=== PATIENT | female | born 1955 | race African-American/Black ===

== ENCOUNTER 2016-08-08 09:28 | Emergency (ER) | payer MEDICARE ==
[2016-08-08 09:43] VITALS: BP 148/101
--- OUTSIDE RECORDS SUMMARY | 2016-08-08 09:49 | XMS REPORT | Summary of Care ---
:1955 Author Organization [facility] Address [address] [place] [address] Care Team Providers Name Role Phone Cathy Lindquisthy Carlyle Primary Care Physician Encounter Date(s): 06/29/16 - 06/29/16 [facility] Shalini Savage, [address] [place], [place] [address] Discharge Disposition: 01 Discharged to Home or Self Care Attending Physician: Blanco Mulligan MD Referring Physician: Blanco Mulligan MD Vital Signs Most recent to oldest [Reference Range]: 1 Blood Pressure [90-130/60-90 mmHg] 130/80mmHg (06/29/16 9:39 AM) Mean Arterial Pressure, Cuff 97 mmHg (06/29/16 9:39 AM) Most recent to oldest [Reference Range]: 1 Height/Length Measured 158 cm (06/29/16 9:39 AM) Problem List Condition Effective Dates Status Health Status Informant Anxiety(Confirmed) Active patient Depression(Confirmed) Active patient Hypercholesteremia(Confirmed) Active patient Hypertension(Confirmed) Active patient Hypertension(Confirmed) Active patient Allergies, Adverse Reactions, Alerts No Known Medication Allergies Medications allopurinol 100 mg oral tablet 2 tab(s), Oral, Daily, # 180 tab(s), 0 Refill(s), Start Date: 06/29/16 13:05:00 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 Start Date: 06/29/16 Status: Orderedallopurinol 100 mg oral tablet 1 tab(s), Oral, Daily, # 90 tab(s), 1 Refill(s), Start Date: 06/29/16 9:44:34 EMISSIONS INSPECTOR, Pharmacy: [facility] Start Date: 06/29/16 Stop Date: 06/29/16 Status: Completedallopurinol 100 mg oral tablet 1 tab(s), Oral, Daily, # 30 tab(s), 0 Refill(s), Start Date: 06/29/16 9:41:46 EMISSIONS INSPECTOR, Pharmacy: [place], [place] Start Date: 06/29/16 Stop Date: 06/29/16 Status: Completedallopurinol 100 mg oral tablet 1 tab(s), Oral, Daily, # 30 tab(s), 0 Refill(s), Start Date: 04/29/16 14:50:00 EMISSIONS INSPECTOR, Pharmacy: [place], [place] Start Date: 04/29/16 Stop Date: 06/29/16 Status: Completedallopurinol 300 mg oral tablet 1 tab(s), Oral, Daily, Increased dose, # 30 tab(s), 0 Refill(s), Start Date: 9:46:00 EMISSIONS INSPECTOR, Pharmacy: [facility], [place] Special Instructions: Increased dose Start Date: 06/29/16 Stop Date: 06/29/16 Status: Completedallopurinol 300 mg oral tablet 1 tab(s), Oral, Daily, # 90 tab(s), 1 Refill(s), Start Date: 06/29/16 9:47:00 EMISSIONS INSPECTOR, Pharmacy: [facility] Start Date: 06/29/16 Stop Date: 06/29/16 Status: CompletedBystolic 10 mg oral tablet 2 tab(s), Oral, Daily, # 60 tab(s), 0 Refill(s), Start Date: 10/18/14 13:24:00 CDT Start Date: 10/18/14 Status: Orderedcitalopram 20 mg oral tablet 1 tab(s), Oral, Daily, # 30 tab(s), 0 Refill(s), Start Date: 10/18/14 13:23:00 CDT Start Date: 10/18/14 Status: Orderedcolchicine 0.6 mg oral capsule TAKE ONE CAPSULE BY MOUTH TWICE DAILY Special Instructions: TAKE ONE CAPSULE BY MOUTH TWICE DAILY Start Date: 04/29/16 Stop Date: 05/27/16 Status: Discontinuedcolchicine-probenecid 0.5 mg-500 mg oral tablet 1 tab(s), Oral, Daily, # 90 tab(s), 1 Refill(s), Start Date: 06/29/16 9:44:33 EMISSIONS INSPECTOR, Pharmacy: [facility] Start Date: 06/29/16 Status: Orderedcolchicine-probenecid 0.5 mg-500 mg oral tablet 1 tab(s), Oral, Daily, # 30 tab(s), 0 Refill(s), Start Date: 06/29/16 9:41:47 EMISSIONS INSPECTOR, Pharmacy: [place], [place] Start Date: 06/29/16 Status: Orderedcolchicine-probenecid 0.5 mg-500 mg oral tablet 1 tab(s), Oral, Daily, # 30 tab(s), 0 Refill(s), Start Date: 04/29/16 14:50:00 EMISSIONS INSPECTOR, Pharmacy: [place], [place] Start Date: 04/29/16 Stop Date: 06/29/16 Status: CompletedEpiPen 2-Oscar 0.3 mg injectable kit INJECT ONE SYRINGE intramuscularly ONCE NEEDED Special Instructions: INJECT ONE SYRINGE intramuscularly ONCE NEEDED Start Date: 04/29/16 Status: Orderedhydrochlorothiazide 25 mg oral tablet 1 tab(s), Oral, Daily, # 30 tab(s), 0 Refill(s), Start Date: 10/18/14 13:24:00 CDT Start Date: 10/18/14 Stop Date: 05/27/16 Status: Completedlevothyroxine 50 mcg (0.05 mg) oral tablet TAKE ONE TABLET BY MOUTH DAILY Special Instructions: TAKE ONE TABLET BY MOUTH DAILY Start Date: 04/29/16 Status: Orderedlisinopril-hydroCHLOROthiazide 20mg-25mg oral tablet TAKE ONE TABLET BY MOUTH DAILY Special Instructions: TAKE ONE TABLET BY MOUTH DAILY Start Date: 04/29/16 Status: Orderedlovastatin 20 mg oral tablet, extended release 1 tab(s), Oral, HS, 0 Refill(s), Start Date: 10/18/14 13:47:00 CDT Start Date: 10/18/14 Status: OrderedpredniSONE 10 mg oral tablet 3 tab(s), Oral, Daily, # 21 tab(s), 0 Refill(s), Start Date: 05/27/16 10:56:00 EMISSIONS INSPECTOR, Pharmacy: [place], [place] Start Date: 05/27/16 Stop Date: 06/29/16 Status: Completedsulindac 200 mg oral tablet TAKE ONE TABLET BY MOUTH TWICE DAILY WITH FOOD Special Instructions: TAKE ONE TABLET BY MOUTH TWICE DAILY WITH FOOD Start Date: 04/29/16 Status: OrderedtraMADol 50 mg oral tablet 1 tab(s), Oral, BID, # 20 tab(s), 0 Refill(s), Start Date: 05/27/16 10:57:00 EMISSIONS INSPECTOR , called to pharmacy (Rx) Start Date: 05/27/16 Stop Date: 06/29/16 Status: CompletedVoltaren 1% topical gel APPLY TWICE A DAY Special Instructions: APPLY TWICE A DAY Start Date: 04/29/16 Stop Date: 05/27/16 Status: Discontinued Results No data available for this section Immunizations No data available for this section Procedures Procedure Date Related Diagnosis Body Site Parotidectomy (Right)1 10/22/14 Breast reduction, bilateral Bunionectomy Hysterectomy Rotator cuff repair Tubal ligation 1auto-populated from documented surgical case Social History No data available for this section Assessment and Plan No data available for this section
--- OUTSIDE RECORDS SUMMARY | 2016-08-08 09:49 | XMS REPORT | Summary of Care ---
:1955 Author Organization [facility] Address [address] [place] [id number] Care Team Providers Name Role Phone LexaChanel Carlyle Primary Care Physician Encounter Date(s): 06/29/16 - 06/29/[address] [address] Discharge Disposition: 01 Discharged to Home or Self Care Attending Physician: Blanco Mulligan MD Admitting Physician: Blanco Mulligan MD Vital Signs No data available for this section Problem List Condition Effective Dates Status Health Status Informant Anxiety(Confirmed) Active patient Depression(Confirmed) Active patient Hypercholesteremia(Confirmed) Active patient Hypertension(Confirmed) Active patient Hypertension(Confirmed) Active patient Allergies, Adverse Reactions, Alerts No Known Medication Allergies Medications allopurinol 100 mg oral tablet 2 tab(s), Oral, Daily, # 180 tab(s), 0 Refill(s), Start Date: 06/29/16 13:05:00 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, Pharmacy: [place], [place] Start Date: 06/29/16 Stop Date: 06/29/16 Status: Completedallopurinol 100 mg oral tablet 1 tab(s), Oral, Daily, # 30 tab(s), 0 Refill(s), Start Date: 04/29/16 14:50:00 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, Pharmacy: [place], [place] Start Date: 04/29/16 Stop Date: 06/29/16 Status: Completedallopurinol 300 mg oral tablet 1 tab(s), Oral, Daily, Increased dose, # 30 tab(s), 0 Refill(s), Start Date: 9:46:00 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, Pharmacy: [place], [place] Special Instructions: Increased dose Start Date: 06/29/16 Stop Date: 06/29/16 Status: Completedallopurinol 300 mg oral tablet 1 tab(s), Oral, Daily, # 90 tab(s), 1 Refill(s), Start Date: 06/29/16 9:47:00 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, Pharmacy: [facility] Start Date: 06/29/16 Stop Date: 06/29/16 [...] tab(s), 1 Refill(s), Start Date: 06/29/16 9:44:33 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, Pharmacy: [facility] Start Date: 06/29/16 Status: Orderedcolchicine-probenecid 0.5 mg-500 mg oral tablet 1 tab(s), Oral, Daily, # 30 tab(s), 0 Refill(s), Start Date: 06/29/16 9:41:47 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, Pharmacy: [place], [place] Start Date: 06/29/16 Status: Orderedcolchicine-probenecid 0.5 mg-500 mg oral tablet 1 tab(s), Oral, Daily, # 30 tab(s), 0 Refill(s), Start Date: 04/29/16 14:50:00 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, Pharmacy: [place], [place] Start Date: 04/29/16 Stop Date: 06/29/16 [...] tab(s), 0 Refill(s), Start Date: 05/27/16 10:56:00 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, Pharmacy: [place], [place] Start Date: 05/27/16 Stop Date: 06/29/16 Status: Completedsulindac 200 mg oral tablet TAKE ONE TABLET BY MOUTH TWICE DAILY WITH FOOD Special Instructions: TAKE ONE TABLET BY MOUTH TWICE DAILY WITH FOOD Start Date: 04/29/16 Status: OrderedtraMADol 50 mg oral tablet 1 tab(s), Oral, BID, # 20 tab(s), 0 Refill(s), Start Date: 05/27/16 10:57:00 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 , called to pharmacy (Rx) Start Date: 05/27/16 Stop Date: 06/29/16 Status: CompletedVoltaren 1% topical gel APPLY TWICE A DAY Special Instructions: APPLY TWICE A DAY Start Date: 04/29/16 Stop Date: 05/27/16 Status: Discontinued Results Patient Viewable Results Most recent to oldest [Reference Range]: 1 Creatinine Lvl [0.50-1.20 mg/dL] 1.11 mg/dL (06/29/16 10:10 AM) eGFR AA [>=60] >60 (06/29/16 10:10 AM) eGFR NESTOR [>=60] 50 *LOW* (06/29/16 10:10 AM) AST [0-39 unit/L] 21 unit/L (06/29/16 10:10 AM) ALT [0-40 unit/L] 22 unit/L (06/29/16 10:10 AM) Uric Acid [2.6-6.0 mg/dL] 5.5 mg/dL (06/29/16 10:10 AM) Estimated Creatinine Clearance 53.62 mL/min (06/29/16 12:05 PM) Immunizations No data available for this section Procedures Procedure Date Related Diagnosis Body Site Parotidectomy (Right)1 10/22/14 Breast reduction, bilateral Bunionectomy Hysterectomy Rotator cuff repair Tubal ligation 1auto-populated from documented surgical case Social History No data available for this section Assessment and Plan No data available for this section
--- OUTSIDE RECORDS SUMMARY | 2016-08-08 09:49 | XMS REPORT | Continuity of Care Document ---
:1955 Author Organization [facility] ([facility]) Address [address] [place] [address] Phone [phone] Care Team Providers Name Role Phone Chanel Lindquist Primary Care Provider [phone] Source Comments This disclosure is being made pursuant to the Care Everywhere program, applicable federal and state laws, and may not contain all informaitonavailable regarding this patient.[facility] ([facility]) Active Allergies and Adverse Reactions No Active Allergies Current Medications Not on file Active Problems Problem Noted Date Polymyalgia rheumatica 05/14/2005 Social History Tobacco Use Types Packs/Day Years Used Date Never Assessed Last Filed Vital Signs Vital Sign Reading Time Taken Blood Pressure 136/85 11/18/2005 1:32 PM CDT Pulse 84 11/18/2005 1:32 PM CDT Temperature 36.8 C (98.24 F) 11/18/2005 1:32 PM CDT Respiratory Rate 16 11/18/2005 1:32 PM CDT Height 1.63 m (5' 4.17") 11/18/2005 1:34 PM CDT Weight 87.399 kg (192 lb 10.9 oz) 11/18/2005 1:32 PM CDT Body Mass Index 32.9 11/18/2005 1:32 PM CDT Oxygen Saturation - - Plan of Care Health Maintenance Due Date Last Done Comments HCV Screening 1955 Hepatitis B Vaccine (1 of 3 - Primary Series) 1955 Tdap Vaccine 02/12/1967 Lipid Disorder Screening 02/12/1974 MMR Vaccine 02/12/1974 Td Vaccine 02/12/1974 Cervical Cancer Screening 02/12/1986 Mammogram 1996 Colonoscopy 02/12/2006 Influenza Vaccine: Seasonal (#1) 12/16/2015 Zoster Vaccine 2016 Results from Last 3 Months Not on file
--- NOTE | 2016-08-08 10:01 | ERNOTE ---
Date of Service: 08/08/16 Time Seen by Provider: 08/08/16 09:40 Stated Complaint: SORE THROAT/EARACHE Source: patient Exam Limitations: no limitations Immunizations: IMMUNIZATION HX Immunizations Up to Date No History of Influenza Vaccine No Hx Pneumococcal Vaccination No Allergies/Adverse Reactions: Allergies No Known Allergies Allergy (Verified 08/08/16 09:52) Home Medications: HOME MEDICATIONS Allopurinol [Zyloprim (Allopurinol)] 200 mg PO DAILY 08/08/16 [Last Taken Unknown] Citalopram Hydrobromide [Citalopram HBr] 20 mg PO DAILY 08/08/16 [Last Taken Unknown] Levothyroxine Sodium [Levo-T] 50 mcg PO DAILY 08/08/16 [Last Taken Unknown] Lisinopril/Hydrochlorothiazide [Lisinopril-Hctz 20-25 mg Tab] 1 each PO DAILY [Last Taken Unknown] Lovastatin [Altoprev] 20 mg PO DAILY 08/08/16 [Last Taken Unknown] Probenecid/Colchicine [Probenecid-Colchicine Tabs] 1 tab PO DAILY 08/08/16 [ Last Taken Unknown] - History of Present Ilness Narrative: Has nasal allergies, but a week ago developed sneezing, rhinorrhea, green mucus , sore throat, ear pain and cough. Hoarse throat. Hasn't taken her temperature. Seems to be getting worse. Timing: getting worse Severity: mild Frequency/Possible Cause: Reports: occasional episodes Modifying Factors - Improves: Reports: nothing Modifying Factors - Worsens: Reports: nothing Associated Symptoms: Reports: cough, nasal congestion, nasal drainage, earache, sore throat Prior Treatment: Denies: recently seen, currently on antibiotics Review of Systems - Review of Systems Constitutional: Present: malaise EYE: Present: no symptoms reported ENT: Present: See HPI Respiratory: Present: See HPI Cardiology: Present: no symptoms reported Gastrointestinal/Abdominal: Present: no symptoms reported Genitourinary: Present: no symptoms reported Musculoskeletal: Present: no symptoms reported Skin: Present: no symptoms reported Neurological: Present: no symptoms reported Endocrine: Present: no symptoms reported Hematologic/Lymphatic: Present: no symptoms reported Psych: Present: no symptoms reported All Other Systems: All systems neg except as marked - Patient's Past Medical History Patient History - Medical: Depression Patient History - Cardiac/Respiratory: Hypertension Patient History - Cancer: No Hx of Cancer Patient History - Surgical Procedures: , Hysterectomy, Tubal Ligation Patient History - Other: None LMP (females 10-50): hysterectomy - Social History Living Situations: home Abuse History: No History of abuse Psych History: Hx of Depression Smoking Status: Former smoker Alcohol Use: occasionally Drug Use: none - Immunizations Immunizations Up to Date: No Hx Pneumococcal Vaccination: No History of Influenza Vaccine: No Physical Exam - Physical Exam General Appearance: Present: wd/wn, alert, no apparent distress Eye Exam: Normal inspection: bilateral, PERRL: bilateral, EOMI: bilateral Ears, Nose, Throat: Present: normal ENT inspection, nasal congestion, pharyngeal erythema, other - hoarse throat Neck: Present: normal inspection, lymphadenopathy (R), lymphadenopathy (L) Respiratory: Present: no respiratory distress, normal breath sounds Cardiovascular/Chest: Present: regular rate, rhythm, no murmur Gastrointestinal/Abdominal: Present: normal bowel sounds, nontender, nondistended, soft, no organomegaly Back Exam: Present: normal inspection, normal range of motion, no CVA tenderness Extremity Exam: Present: normal inspection, no edema Neurological Exam: Present: alert, oriented, normal mood/affect Skin Exam: Present: normal color, warm/dry ED Progress - Vital Signs Patient's Vital Signs:: I have reviewed the patient's vital signs. Vital Signs: Vital Signs 08/08/16 09:33 Temperature 36.3 C L Pulse Rate 75 Respiratory 16 Rate Blood Pressure 148/101 O2 Sat by Pulse 97 Oximetry - Progress/Reassessment Chief Complaint: Upper Respiratory Symptoms Departure - Departure Clinical Impression: Viral syndrome Allergic rhinitis Qualifiers: Allergic rhinitis trigger: unspecified Allergic rhinitis seasonality: unspecified seasonality Qualified Code(s): J30.9 - Allergic rhinitis, unspecified Condition: Good Instructions: Viral Respiratory Infection, [id number] Additional Instructions: Yellow listerine, gargle full strength often. Tylenol 650 mg four times daily on a regular basis till well. Followup with your doctor end of this week. One tsp lemon juice One TBLSP honey in hot tea taken hourly. Referrals: Chanel Lindquist MD [Primary Care Provider] -
== END 2016-08-08 10:06 | disposition home or self-care (01) ==
LOC: ER 09:28
DX: B34.9 Viral infection, unspecified (principal); J30.9 Allergic rhinitis, unspecified; I10 Essential (primary) hypertension